=== PATIENT | male | born 1955 | race Caucasian/White ===

== ENCOUNTER 2022-08-01 08:24 | Outpatient (CLI) | payer MEDICARE | END 2022-08-01 08:25 | disposition home or self-care (01) | LOC: CT 08:24 | PROVIDERS: ATTEND Internal Medicine Gastroenterology | DX: K57.90 Diverticulosis of intestine, part unspecified, without perforation or abscess without bleeding (principal); K57.92 Diverticulitis of intestine, part unspecified, without perforation or abscess without bleeding; R10.31 Right lower quadrant pain; Z12.11 Encounter for screening for malignant neoplasm of colon; K76.89 Other specified diseases of liver; N28.89 Other specified disorders of kidney and ureter; K57.30 Diverticulosis of large intestine without perforation or abscess without bleeding | CPT/HCPCS: 74177; 82565 ==

== ENCOUNTER 2023-11-16 12:15 | Outpatient (CLI) | payer MEDICARE ==
[2023-11-16] MEDS ORDERED: Barium Sulfate 96% 176 GM BOT (xray ONLY) ONE (12:27)
[2023-11-16] MEDS ORDERED: E-Z-HD 98% W/W 340GM BOT (x-ray ONLY) ONE (12:27)
== END 2023-11-16 12:16 | disposition home or self-care (01) ==
LOC: RAD 12:15
PROVIDERS: ATTEND Internal Medicine Gastroenterology
DX: K31.5 Obstruction of duodenum (principal)
CPT/HCPCS: 74246

== ENCOUNTER 2024-01-31 10:40 | Outpatient (CLI) | payer MEDICARE ==
[2024-01-31] MEDS ORDERED: Iopamidol 370 76% 100 ML VIAL ONE (11:33)
[2024-01-31] MEDS ORDERED: GASTROGRAFIN 30 ML BOT ONE (11:33)
== END 2024-01-31 10:41 | disposition home or self-care (01) ==
LOC: CT 10:40
PROVIDERS: ATTEND Internal Medicine Gastroenterology
DX: K31.5 Obstruction of duodenum (principal); K22.70 Barrett's esophagus without dysplasia; K26.9 Duodenal ulcer, unspecified as acute or chronic, without hemorrhage or perforation; K57.30 Diverticulosis of large intestine without perforation or abscess without bleeding; K76.89 Other specified diseases of liver; N28.1 Cyst of kidney, acquired
CPT/HCPCS: 74170; 82565; Q9963; Q9967